=== PATIENT | female | born 1985 | race African-American/Black ===

== ENCOUNTER 2020-12-24 18:35 | Emergency (ER) | payer MEDICAID ==
[~2020-12-24] VITALS: Ht 167.6 cm; Wt 76.8 kg
[2020-12-24] MEDS ORDERED: AMOX-424 MT (23:44)
[2020-12-24] MEDS ORDERED: ACET-2708 MT (23:44)
[2020-12-24] MEDS ORDERED: CHLO473M2 MT (23:44)
[2020-12-24] MEDS ORDERED: NAPR-1176 MT (23:44)
[2020-12-24] MEDS ORDERED: ACETAMINOPHEN 325MG TABLET PO ONE (23:45)
[2020-12-25 00:21] VITALS: BP 121/76
== END 2020-12-25 00:23 | disposition home or self-care (01) ==
LOC: ER 18:35
DX: K08.89 Other specified disorders of teeth and supporting structures (principal)
CPT/HCPCS: 81025; 99283

== ENCOUNTER 2024-06-27 21:37 | Emergency (ER) | payer MEDICAID ==
[~2024-06-27] VITALS: Ht 167.6 cm; Wt 86.2 kg
[~2024-06-27 21:37] MED LIST: ACET-2708 MT; AMOX-424 MT; CHLO473M2 MT; NAPR-1176 MT
[2024-06-27 22:07] VITALS: O2SAT 99
[2024-06-27 22:55] LABS: BASOPHILS % 0.5 % (0.0-2.0); EOSINOPHILS % 1.3 % (0.0-5.0); HEMATOCRIT. 38.4 % (36.0-48.0); HEMOGLOBIN. 12.9 g/dL (12.0-16.0); LYMPHOCYTES % 48.5 % (20.0-50.0); MEAN CORPUSCULAR HEMOGLOBIN 30.2 pg (28.0-32.0); MEAN CORPUSCULAR HGB CONC 33.4 g/dL (31.0-37.0); MEAN CORPUSCULAR VOLUME 90.3 fL (81.0-99.0); MEAN PLATELET VOLUME 6.3 fl (7.4-10.4); MONOCYTES % 3.4 % (2.0-8.0); NEUTROPHILS % 46.3 % (40.0-76.0); PLATELET 352 x1000/uL (130-400); RED BLOOD CELL COUNT 4.25 mill/uL (4.2-5.4); RED CELL DISTRIBUTION WIDTH 13.9 % (11.6-14.6); WHITE BLOOD COUNT 5.1 x1000/uL (4.5-11.0)
[2024-06-27 22:58] LABS: CHLORIDE 105 mEq/L (98-107); POTASSIUM 3.4 mEq/L (3.5-5.1); SODIUM 140 mEq/L (136-145)
[2024-06-27 22:59] LABS: CARBON DIOXIDE 26 mEq/L (21-32)
[2024-06-27 23:00] LABS: CALCIUM 9.4 mg/dL (8.7-10.4)
[2024-06-27 23:00] LABS: CLARITY URINE TURBID (CLEAR); COLOR URINE DARK YELLOW (YELLOW); GLUCOSE URINE NEGATIVE (NEGATIVE); KETONES URINE TRACE (NEGATIVE); LEUKOCYTE ESTERASE URINE 1+ (NEGATIVE); NITRITE URINE NEGATIVE (NEGATIVE); OCCULT BLOOD URINE 3+ (NEGATIVE); PH URINE 5.5 (4.5-8.0); PROTEIN URINE 1+ (NEGATIVE); SPECIFIC GRAVITY URINE 1.028 (1.005-1.030)
[2024-06-27 23:04] LABS: CREATININE 0.9 mg/dL (0.6-1.0); GLUCOSE 130 mg/dL (70-105)
[2024-06-27 23:05] LABS: UREA NITROGEN BLOOD 8 mg/dL (9-23)
[2024-06-27 23:06] LABS: ALANINE AMINOTRANSFERASE 9 IU/L (10-49); ALBUMIN 4.2 g/dL (3.2-4.8); ASPARTATE AMINOTRANSFERASE 16 IU/L (<34)
[2024-06-27 23:07] LABS: BILIRUBIN DIRECT 0.2 mg/dL (<=3.0); BILIRUBIN TOTAL 0.7 mg/dL (0.1-1.0); PROTEIN TOTAL 7.5 g/dL (6.0-8.3)
[2024-06-27] MEDS: ACETAMINOPHEN 500MG TABLET PO ONE (23:07)
[2024-06-27] MEDS: ONDANSETRON HCL 4MG TABLET PO ONE (23:53)
[2024-06-28 00:12] LABS: SQUAMOUS EPITHELIAL CELL URINE 3+ /lpf (RARE/1+)
[2024-06-28 00:13] LABS: RBC URINE 50-100 /hpf (0-2)
[2024-06-28 00:14] LABS: BACTERIA URINE TRACE; TRICHOMONAS URINE 2+
[2024-06-28] MEDS ORDERED: METR-167 MT (00:43)
[2024-06-28 01:08] VITALS: BP 118/74; PULSE 88; RESP 16; TEMP 36.7; O2SAT 99
== END 2024-06-28 01:08 | disposition home or self-care (01) ==
LOC: ER 21:37
DX: B34.9 Viral infection, unspecified (principal); A59.9 Trichomoniasis, unspecified; J45.909 Unspecified asthma, uncomplicated; Z79.1 Long term (current) use of non-steroidal anti-inflammatories (NSAID); Z79.899 Other long term (current) drug therapy
CPT/HCPCS: 80076; 80048; 81003; 81025; 83690; 85025; 36415; 71045; 99284; Q0162; Z7610 ×3; 99285

== ENCOUNTER 2024-08-20 20:02 | Emergency (ER) | payer MEDICAID ==
[~2024-08-20] VITALS: Ht 167.6 cm; Wt 87.9 kg
[~2024-08-20 20:02] MED LIST changes: +METR-167 MT
[2024-08-20 20:17] VITALS: TEMP 36.5; O2SAT 99
[2024-08-20 22:35] LABS: BASOPHILS % 0.4 % (0.0-2.0); EOSINOPHILS % 0.8 % (0.0-5.0); HEMATOCRIT. 35.1 % (36.0-48.0); HEMOGLOBIN. 11.7 g/dL (12.0-16.0); MEAN CORPUSCULAR HEMOGLOBIN 29.9 pg (28.0-32.0); MEAN CORPUSCULAR HGB CONC 33.4 g/dL (31.0-37.0); MEAN CORPUSCULAR VOLUME 89.7 fL (81.0-99.0); MEAN PLATELET VOLUME 6.1 fl (7.4-10.4); MONOCYTES % 5.8 % (2.0-8.0); PLATELET 395 x1000/uL (130-400); RED BLOOD CELL COUNT 3.91 mill/uL (4.2-5.4); RED CELL DISTRIBUTION WIDTH 14.1 % (11.6-14.6); WHITE BLOOD COUNT 7.3 x1000/uL (4.5-11.0)
[2024-08-20 22:40] LABS: CHLORIDE 106 mEq/L (98-107); POTASSIUM 4.4 mEq/L (3.5-5.1); SODIUM 138 mEq/L (136-145)
[2024-08-20 22:41] LABS: CALCIUM 8.9 mg/dL (8.7-10.4); CARBON DIOXIDE 28 mEq/L (21-32)
[2024-08-20 22:46] LABS: CREATININE 0.9 mg/dL (0.6-1.0); GLUCOSE 110 mg/dL (70-105); UREA NITROGEN BLOOD 11 mg/dL (9-23)
[2024-08-20] MEDS ORDERED: KETOROLAC 30MG/ML VIAL IM ONE (23:30)
[2024-08-20] MEDS ORDERED: ONDANSETRON HCL 4MG/2ML INJ IM ONE (23:30)
[2024-08-20 23:36] LABS: ALANINE AMINOTRANSFERASE 15 IU/L (10-49); ASPARTATE AMINOTRANSFERASE 16 IU/L (<34); BILIRUBIN DIRECT < 0.1 mg/dL (<=3.0); BILIRUBIN TOTAL 0.3 mg/dL (0.1-1.0)
[2024-08-20 23:37] LABS: HCG SCREEN POSITIVE; PROTEIN TOTAL 7.2 g/dL (6.0-8.3)
[2024-08-21 00:12] VITALS: TEMP 97.9
[2024-08-21] MEDS: ACETAMINOPHEN 325MG TABLET PO ONE (00:12)
[2024-08-21] MEDS: METOCLOPRAMIDE HCL 10MG/2ML VIAL IM ONE (00:13)
[2024-08-21 00:17] LABS: CLARITY URINE CLEAR (CLEAR); COLOR URINE ORANGE (YELLOW); GLUCOSE URINE NEGATIVE (NEGATIVE); KETONES URINE NEGATIVE (NEGATIVE); LEUKOCYTE ESTERASE URINE NEGATIVE (NEGATIVE); NITRITE URINE NEGATIVE (NEGATIVE); OCCULT BLOOD URINE NEGATIVE (NEGATIVE); PH URINE 7.5 (4.5-8.0); PROTEIN URINE NEGATIVE (NEGATIVE); SPECIFIC GRAVITY URINE 1.021 (1.005-1.030); UROBILINOGEN URINE 0.2 E.U./dL (0.2-1.0)
[2024-08-21] MEDS ORDERED: PREN-152 MT (01:07)
[2024-08-21 01:17] VITALS: BP 88/62; PULSE 66; RESP 14; O2SAT 100
== END 2024-08-21 01:21 | disposition home or self-care (01) ==
LOC: ER 20:02
DX: O21.9 Vomiting of pregnancy, unspecified (principal); O26.891 Other specified pregnancy related conditions, first trimester; R10.2 Pelvic and perineal pain; O99.511 Diseases of the respiratory system complicating pregnancy, first trimester; J45.909 Unspecified asthma, uncomplicated; Z3A.01 Less than 8 weeks gestation of pregnancy
CPT/HCPCS: 99285; 80076; 80048; 81003; 81025; 84703; 84702; 83690; 85025; 36415; 76801; 96372; J2765